=== PATIENT | male | born 1950 | race Caucasian/White ===

== ENCOUNTER → 2018-04-07 | Outpatient (CLI) | payer MEDICARE ==
[2018-04-07 11:50] LABS: Appearance,Urine Clear (Clear); Bilirubin,Urine Negative (Negative); Blood,Urine Negative (Negative); Color,Urine Yellow; Glucose,Urine (UA) Negative (Negative); Ketones,Urine Negative (Negative); Leukocyte Esterase,Urine Negative (Negative); Nitrite,Urine Negative (Negative); PH, Urine 7.5 (5.0-8.0); Protein,Urine Trace (Negative); Specific Gravity,Urine 1.016 (1.001-1.035); Urobilinogen,Urine <2.0 mg/dL (<2.0)
[2018-04-07 12:01] LABS: Basophils % (A) 1 %; Eosinophils % (A) 1 %; HCT 40.9 % (39.0-53.0); HGB 13.6 gm/dL (13.0-17.5); Lymphocytes # (A) 0.6 k/uL (1.0-4.8); Lymphocytes % (A) 11 %; MCH 30.8 pg (25.0-35.0); MCHC 33.2 g/dL (31.0-37.0); MCV 92.8 fL (80.0-100.0); Mean Platelet Volume 7.1; Monocytes # (A) 0.4 k/uL (0-1.0); Monocytes % (A) 7 %; Neutrophils # (A) 4.3 k/uL (1.3-7.7); Neutrophils % (A) 80 %; Platelet Count 113 k/uL (150-450); RBC 4.41 m/uL (4.30-5.90); RDW 14.7 % (11.5-15.5); WBC 5.3 k/uL (3.8-10.6)
--- NOTE | 2018-04-07 12:01 | XR ---
EXAMINATION TYPE: XR chest 2V DATE OF EXAM: 04/07/2018 COMPARISON: 04/07/2018 HISTORY: Shortness of breath TECHNIQUE: Frontal and lateral views of the chest are obtained. FINDINGS: Scattered senescent parenchymal changes noted. Hyperinflation compatible with COPD. No evidence for infiltrate. No evidence for atelectasis. Heart size is stable. Mediastinal structures are stable and grossly unremarkable. No evidence for hilar prominence. Degenerative changes dorsal spine. IMPRESSION: 1. No evidence for acute pulmonary disease.
[2018-04-07 12:06] LABS: Anion Gap 14 mmol/L; Blood Urea Nitrogen 16 mg/dL (9-20); Calcium 8.7 mg/dL (8.4-10.2); Carbon Dioxide 25 mmol/L (22-30); Chloride 103 mmol/L (98-107); Glucose 143 mg/dL (74-99); Potassium 4.6 mmol/L (3.5-5.1); Sodium 142 mmol/L (137-145)
[2018-04-07 12:07] LABS: INR 1.1 (<1.2); Prothrombin Time 10.4 sec (9.0-12.0)
[2018-04-07 12:14] LABS: Partial Thromboplastin Time 21.5 sec (22.0-30.0)
== END | disposition home or self-care (01) ==
LOC: LABPAT 11:09
PROVIDERS: ATTEND Orthopaedic Surgery Orthopaedic Surgery of the Spine
DX: Z01.818 Encounter for other preprocedural examination (principal)
CPT/HCPCS: 36415; 71046; 80048; 81003; 85025; 85610; 85730; 86850; 86900; 86901

== ENCOUNTER 2018-04-13 09:38 | Day surgery (SDC) | payer MEDICARE ==
[~2018-04-13 09:38] MED LIST: BACITRACIN 50,000 UNIT, POLYMYXIN B 500,000 UNIT in SODIUM CHLORIDE 0.9% IRRIGATIO 1,00... IRRIGATION ONE; LIDOCAINE 1% 20 ML VIAL (10MG/ML) FOR IV START INTRADERMA PRN; ONDANSETRON 4 MG/2 ML VIAL IVP ONE; ceFAZolin IN SWFI 2 GM/20 ML SYRINGE IVP ONE
[2018-04-13] MEDS: LACTATED RINGERS 1,000 ML IV SCH ×2 (10:46→18:38)
[2018-04-13] MEDS ORDERED: MIDAZOLAM 2 MG/2 ML VIAL ONE ×2 (11:02→11:55)
[2018-04-13] MEDS ORDERED: fentaNYL (PF) 50 MCG/ML 2 ML AMP ONE ×2 (11:28→11:55)
[2018-04-13] MEDS ORDERED: PROPOFOL 10 MG/ML 20 ML VIAL IV ONE (11:55)
[2018-04-13] MEDS ORDERED: PHENYLEPHRINE-0.9% NACL SYG 1 MG/10 ML SYRINGE ONE (11:55)
[2018-04-13] MEDS ORDERED: LIDOCAINE 1% INJ 10MG/ML (20 ML MDV) ONE (11:55)
[2018-04-13] MEDS ORDERED: SUCCINYLCHOLINE CHLORIDE VIAL 200 MG/10 ML VIAL IV ONE (11:55)
[2018-04-13] MEDS ORDERED: ePHEDrine SULFATE/0.9% NACL/PF 50 MG/5 ML SYRINGE IV ONE (11:55)
[2018-04-13] MEDS ORDERED: DEXAMETHASONE SOD PHOS (MDV) 100 MG/10 ML VIAL ONE (11:55)
[2018-04-13] MEDS ORDERED: LIDOCAINE 0.5%-EPI 1:200,000 50 ML VIAL SQ ONE ×2 (12:27)
[2018-04-13] MEDS ORDERED: LACTATED RINGERS 1,000 ML IV ONE (12:48)
[2018-04-13] MEDS ORDERED: GELATIN SPONGE,ABSORB (LARGE) 1 EACH SPONGE MISCELLANE ONE (13:17)
[2018-04-13] MEDS ORDERED: THROMBIN (BOVINE) 5,000 UNIT VIAL MISCELLANE ONE (13:17)
--- NOTE | 2018-04-13 13:31 | XR ---
EXAMINATION TYPE: XR cervical spine 1V DATE OF EXAM: 04/13/2018 COMPARISON: NONE HISTORY: Intraoperative cervical spine needle placement TECHNIQUE: Single portable lateral view of the cervical spine was obtained. FINDINGS: Needle placement at the C4-C5 intervertebral disc space from an anterior approach is demons trated. Patient is intubated. Evaluation of the prevertebral space is limited. Mild degenerative reeves ges of the cervical spine are seen. IMPRESSION: Intraoperative needle placement at the C4-C5 intervertebral disc space.
[2018-04-13] MEDS ORDERED: ONDANSETRON 4 MG/2 ML VIAL IVP PRN (14:12)
[2018-04-13] MEDS ORDERED: BENZOCAINE/MENTHOL LOZENG 1 EACH LOZENGE MUCOUS MEM PRN (14:12)
[2018-04-13] MEDS ORDERED: ACETAMINOPHEN TAB 325 MG TAB PO PRN (14:12)
[2018-04-13] MEDS ORDERED: oxyCODONE-APAP 7.5-325MG 1 EACH TAB PO PRN (14:14)
[2018-04-13] MEDS ORDERED: traZODone HCL 100 MG TAB PO PRN (14:14)
--- NOTE | 2018-04-13 14:20 | P.OP ---
Date of Procedure: 04/13/18 Preoperative Diagnosis: Cervical stenosis C4 5 C5 6 C6 7, degenerative disc disease C4 5 C5 6 C6 7, upper extremity radiculopathy, neck pain, large anterior osteophytes at C4 5 C5 6 C6 7 Postoperative Diagnosis: same Anesthesia: GETA Pathology: none sent Condition: stable Disposition: PACU Description of Procedure: BRIEF OPERATIVE NOTE Preoperative Diagnosis:Cervical stenosis C4 5 C5 6 C6 7 herniated nucleus pulposis C4 5 C5 6 C6 7, degenerative disc disease C4 5 C5 6 C6 7, neck pain, upper extremity radiculopathy, anterior osteophytes, Postoperative Diagnosis: Same Procedure: Anterior cervical decompression and fusion C4 5 C5 6 C6 7 Placement of interbody allograft bone graft C4 5 C5 6 C6 7 Application of anterior cervical plate C4 5 C5 6 C6 7 Surgeon: Dr. Elliott Atv Mechanic: Preston Sagastume is present throughout the entire the case persistence during positioning, dissection, exposure, visualization, and all crucial elements of the case as well as closure. Anesthesia: General anesthesia Estimated blood loss: Approximately 50 mL Complications: None apparent Components implanted: K2M [place] anterior cervical plate system with screws and Vikos interbody allograft bone graft and 1 mL of DBX bone putty Disposition: To recovery room in good stable condition. OPERATIVE INDICATIONS The patient has had long-standing issues in their neck and upper extremities. He had been having worsening pain in his neck and upper extremities despite aggressive conservative treatment. His found have severe disc degeneration with loss of cervical lordosis had increasing kyphosis at his cervical spine with evidence of disc herniation with severe cervical spinal stenosis which correlate well with his neck and upper extremity symptoms. The patient has been through conservative treatment. We discussed various treatment options including surgery, and the patient wishes to proceed with surgery We discussed the risk, patient's alternatives and benefits of surgery including but not limited to, risk of bleeding risk of infection, risk of need for further surgery , risk of decreased, loss of motion, muscle function, malunion nonunion, hardware failure, nerve damage, paralysis, heart attack, and . OPERATIVE SUMMARY After discussing all the risks, patient alternatives and benefits at length, the patient elected to proceed with surgical intervention, signed informed consent, and presented for their procedure. The patient was seen and examined in the preoperative holding area and the surgical site was marked. The patient was given antibiotics and brought to the operating room. The patient was positioned on the operating room table in a supine position being careful to pad any bony prominences and pressure points. The patient was sedated and intubated by anesthesia in standard fashion. Once the airway and C- spine were stabilized the patient's arms were padded and tucked at her side, with her shoulders gently taped. The head was placed in a donut pad with the neck in good neutral alignment and position. We were careful to maintain the patient's cervical spine and good neutral alignment and position throughout. The patient was prepped and draped in a normal standard fashion. An appropriate timeout and keystone protocol performed. We were able to proceed with the surgery. The local wound area was infiltrated with local anesthetic. An incision was made transversely approximately 2-1/2 cm over the appropriate levels at C6. Dissection was taken down subcutaneously to the level of the platysma which was split in line with its fibers. Dissection was taken with a carotid approach, with the trachea and esophagus medial and the carotid sheath laterally. We dissected down to the anterior surface of the vertebral bodies from C4 to C7. Intraoperative x-ray was taken which showed a marker at the appropriate level at C4 5. With the appropriate level positively confirmed, we were able to proceed with discectomy at the appropriate levels. We started first at C6 7 and then worked our way out to C5 6 and then at C4 5. There large anterior osteophytes at each level particularly at C5 6 and C6 7 which were taken down as well with large Kerrison rongeurs. All of the operative levels were exposed appropriately. The patient had all their twitches back, and there was no evidence of recurrent laryngeal issue. The wound was copiously irrigated and suctioned dry as had been done periodically throughout the case. At the appropriate level/levels, first at C67 and then at C5 6 and then at C4 5 I established an annulotomy with an 11 blade scalpel. A discectomy was performed with a combination of pituitary rongeurs, curettes, a high-speed bur, and Kerrison rongeurs. The posterior longitudinal ligament was taken down as were any posterior osteophytes. There was disc herniation as well and any extruded disc and disc herniation was removed. This gave good central and bilateral foraminal decompression. There is no evidence of any dural tear or leak. The endplates were prepared with a high-speed bur. With the endplates in good parallel position, I was able to size for the appropriate size interbody graft. The wound was irrigated and suctioned dry the graft was prepared and malleted into position. It had good alignment and position with the anterior surface flush with the anterior surface of the vertebral bodies. This was done similarly the appropriate levels for each level at C67 C5 6 and C4 5. With the grafts intact, I was able to measure and contour and appropriate sized plate. The plate was positioned at the midline over the appropriate levels from C4 C7. Screw holes were established with a hand drill and drill guide. Screws were placed in good alignment and position with excellent bony purchase. They were seated under the locking device. The construct was checked and found to be stable. Intraoperative x-ray was taken which showed good alignment and position of the implants at the appropriate levels. There was no evidence of any dural tear or leak. Good hemostasis was maintained. The wound was copiously irrigated and suctioned dry as had been done periodically throughout the case. The platysma was closed with absorbable suture. The subcutaneous tissue was closed. The subcuticular tissue was closed with absorbable suture. The wound was cleaned and dried and dressed appropriately. A soft cervical collar was placed appropriately. The patient was woken up by anesthesia, extubated, transferred back gently to their hospital bed and brought to the recovery room in good stable condition. The patient will be admitted to the hospital for appropriate postoperative care , medical management and monitoring. We will continue to follow them closely about the postoperative course.
[2018-04-13] MEDS: HYDROmorphone 0.5 MG/0.5 ML SYRINGE IVP PRN ×4 (14:30→20:18)
[2018-04-13] MEDS: MEPERIDINE 50 MG/ML SYRINGE IVP ONE ×2 (15:01→15:07)
--- NOTE | 2018-04-13 15:35 | XR ---
EXAMINATION TYPE: XR cervical spine 1V DATE OF EXAM: 04/13/2018 COMPARISON: 04/13/2019 12:44 PM HISTORY: Postoperative evaluation of the cervical spine TECHNIQUE: Single crosstable lateral postoperative image of the cervical spine. FINDINGS: There is a new anterior cervical fusion device beginning at C4 extending at least through C 6, however the inferior margin is not visualized due to the patient's shoulders. Patient is again int ubated. Likely postoperative swelling greatest abnormal thickening of the prevertebral soft tissues. IMPRESSION: Partially visualized anterior cervical fusion device immediately postoperatively.
[2018-04-13] MEDS ORDERED: ceFAZolin 3 GM in SODIUM CHLORIDE 0.9% 100 ML IVPB SCH (16:00)
[2018-04-13 16:03] VITALS: BMI 31.1
[2018-04-13] MEDS: ceFAZolin IN SWFI 2 GM/20 ML SYRINGE IVP SCH (20:15)
[2018-04-13 20:57] VITALS: RESP 16
[2018-04-13] MEDS ORDERED: DILTIAZEM ORAL 60 MG TAB PO SCH (21:00)
[2018-04-14] MEDS: SODIUM CHLORIDE 0.9% 1,000 ML IV SCH ×2 (00:07→03:09)
[2018-04-14] MEDS: HYDROmorphone 0.5 MG/0.5 ML SYRINGE IVP PRN ×2 (00:29→06:09)
[2018-04-14] MEDS: ceFAZolin IN SWFI 2 GM/20 ML SYRINGE IVP SCH (03:09)
[2018-04-14 05:30] VITALS: BP 180/88; PULSE 90; TEMP 98
--- NOTE | 2018-04-14 08:31 | P.DS ---
Providers Date of admission: 04/13/2018 Expected date of discharge: 04/14/18 Attending physician: Sukumar Elliott Primary care physician: Roxann Amaya - Discharge Diagnosis(es) (1) Cervical stenosis of spinal canal Current Visit: Yes Status: Acute (2) Degenerative disc disease, cervical Current Visit: Yes Status: Acute (3) Radiculopathy affecting upper extremity Current Visit: Yes Status: Acute (4) Cervicalgia Current Visit: Yes Status: Acute (5) Status post cervical arthrodesis Current Visit: Yes Status: Acute Hospital Course: This is a pleasant 67-year-old male who presented with C4-5, C5-6, and C6-7 degenerative disc disease, cervical stenosis, and large anterior osteophytic spurring with upper extremity radiculopathy and cervicalgia who failed outpatient conservative therapy. He was admitted for an anterior cervical decompression and fusion at C4-5, C5-6, and C6-7. The patient tolerated the procedure well and did well postoperatively. His pain has been well-controlled postoperatively. He states he feels significantly better than he did prior to surgical intervention. He continues to keep his soft collar intact and states it is comfortable. Condition on day of discharge stable. Patient will be discharged home. Patient was cleared preoperatively for surgery by Dr. Amaya. Patient currently denies any nausea, vomiting, fever, or chills. Patient is eating and voiding freely without difficulty. Patient may shower Tegaderm dressing intact. Patient may remove Tegaderm dressing in 3 days and shower without a dressing at that time. Patient should keep Steri-Strips intact and allow them to fall off naturally. Patient should refrain from driving until at least after their first follow-up appointment in the office. Patient should avoid excessive neck flexion, extension, rotation, and lateral sidebending; no overhead lifting; no lifting greater than 10 pounds. Patient may continue taking Percocet 7.5 mg/325 mg 1 tablet every 6 hours as needed for pain as previously prescribed in the outpatient setting. He may call the office for refill of this medication if he needs one prior to his follow-up appointment. He may resume previously prescribed home medications. Physical Exam on day of discharge: Patient is awake, alert, and oriented 3 Vital signs stable Good chest excursion with deep inspiration and expiration Abdomen soft nontender No signs or symptoms of DVT; no calf pain Adequate range of motion of the cervical spine with flexion, extension, and bilateral rotation Hand Upper And Bottom Lacer strength, thumb strength, interosseous strength, biceps strength, triceps strength, and shoulder strength positive sustained bilaterally Soft cervical collar intact Incision is dry and intact with some blood at the inferior portion of the dressing; no erythema, purulence, or signs of infection No active drainage from the incision site Tegaderm dressing and non-stick Telfa intact Procedures: Anterior cervical decompression and fusion at C4-5, C5-6, and C6-7 Patient Condition at Discharge: Stable Plan - Discharge Summary Discharge Rx Participant: No New Discharge Prescriptions: No Action Diltiazem HCl 60 mg PO HS Diltiazem HCl 120 mg PO QAM Multivitamins, Thera [Multivitamin (formulary)] 1 tab PO DAILY oxyCODONE HCL/ACETAMINOPHEN [Percocet 7.5-325 mg] 1 tab PO Q6H PRN PRN Reason: Pain Rivaroxaban [Xarelto] 20 mg PO DAILY traZODone HCL 100 mg PO HS PRN PRN Reason: Insomnia Lisinopril 40 mg PO QAM Amiodarone [Cordarone] 50 mg PO DAILY Discharge Medication List Diltiazem HCl 60 mg PO HS 04/09/18 [History] Diltiazem HCl 120 mg PO QAM 04/09/18 [History] Lisinopril 40 mg PO QAM 04/09/18 [History] Multivitamins, Thera [Multivitamin (formulary)] 1 tab PO DAILY 04/09/18 [History ] Rivaroxaban [Xarelto] 20 mg PO DAILY 04/09/18 [History] oxyCODONE HCL/ACETAMINOPHEN [Percocet 7.5-325 mg] 1 tab PO Q6H PRN 04/09/18 [ History] traZODone HCL 100 mg PO HS PRN 04/09/18 [History] Amiodarone [Cordarone] 50 mg PO DAILY 04/13/18 [History] Follow up Appointment(s)/Referral(s): Preston Morelos PAC [PHYSICIAN DRAWING PRESS OPERATOR] - 2 Weeks (Patient may follow-up with Preston Morelos PA-C or Dr. Will Elliott at [facility] in 2-3 weeks following discharge. ) Activity/Diet/Wound Care/Special Instructions: 1. Patient may shower with Tegaderm dressing intact. 2. Patient may remove Tegaderm dressing in 3 days and shower without a dressing at that time. 3. Patient should keep Steri-Strips intact and allow them to fall off naturally. 4. Patient should refrain from driving until at least after their first follow- up appointment in the office. 5. Patient should avoid excessive cervical extension, flexion, rotation, and sidebending; avoid overhead lifting; no lifting greater than 10 pounds 6. Take medications as prescribed 7. Do not soak in tub Discharge Disposition: HOME SELF-CARE
[2018-04-14] MEDS ORDERED: LISINOPRIL 20 MG TAB PO SCH (09:00)
[2018-04-14] MEDS ORDERED: AMIODARONE 50 MG TAB PO SCH (09:00)
[2018-04-14] MEDS ORDERED: DILTIAZEM ORAL 60 MG TAB PO SCH (09:00)
[2018-04-14] MEDS ORDERED: SENNOSIDES-DOCUSATE SODIUM 1 EACH TAB PO SCH (09:00)
[2018-04-14] MEDS ORDERED: MULTIVITAMINS, THERA 1 EACH TAB PO SCH (12:00)
[2018-04-15] MEDS ORDERED: RIVAROXABAN 20 MG TAB PO SCH (09:00)
== END 2018-04-14 12:09 | disposition home or self-care (01) ==
LOC: OR 09:38 → EDSTATUS 13:00 → 5MS5E 14:18 → OR 04-14 12:09
PROVIDERS: ATTEND Orthopaedic Surgery Orthopaedic Surgery of the Spine
DX: M48.02 Spinal stenosis, cervical region (principal); M43.12 Spondylolisthesis, cervical region; M50.121 Cervical disc disorder at C4-C5 level with radiculopathy; M25.78 Osteophyte, vertebrae; M41.9 Scoliosis, unspecified; I48.0 Paroxysmal atrial fibrillation; F32.9 Major depressive disorder, single episode, unspecified; I11.9 Hypertensive heart disease without heart failure; E78.00 Pure hypercholesterolemia, unspecified; I25.10 Atherosclerotic heart disease of native coronary artery without angina pectoris; R53.83 Other fatigue; Z79.01 Long term (current) use of anticoagulants; Z79.1 Long term (current) use of non-steroidal anti-inflammatories (NSAID); Z79.52 Long term (current) use of systemic steroids; Z79.899 Other long term (current) drug therapy; Z79.891 Long term (current) use of opiate analgesic; Z82.49 Family history of ischemic heart disease and other diseases of the circulatory system; Z88.8 Allergy status to other drugs, medicaments and biological substances
CPT/HCPCS: 72020; 22551; 22552 ×2; 22845; 20931; C1713 ×2; C1762 ×2; J2250; J0330; J2175; J2405; J2001; J3010; J1100; J2370; J2704; J1170 ×2; J0690 ×2; 86850; 86900; 86901

== ENCOUNTER 2018-04-17 13:39 | Emergency (ER) | payer MEDICARE ==
[2018-04-17 14:00] VITALS: BP 164/99; PULSE 117; RESP 20; TEMP 98.5
[2018-04-17] MEDS ORDERED: MORPHINE SULFATE 4 MG/ML SYRINGE IM STA (14:35)
[2018-04-17] MEDS ORDERED: ONDANSETRON ODT 4 MG TAB PO STA (14:35)
--- NOTE | 2018-04-17 15:26 | ED ---
General Adult HPI - General Chief complaint: Recheck/Abnormal Lab/Rx Stated complaint: hypertension, anxiety Time Seen by Provider: 04/17/18 14:19 Source: patient, RN notes reviewed Mode of arrival: wheelchair Limitations: no limitations - History of Present Illness Initial comments: 67-year-old male presents to the emergency department for a chief complaint of neck pain. Patient had surgery [address] Elliott. Patient states that last night he gasped in his sleep and has had increased pain since that time. Patient states he took Percocet this morning at 6 AM but has not taken anything since that time. Patient states he has been anxious. He states his daughter is in the ICU and that is causing him anxiety. Patient states his blood pressure was high at home about 200/100. He states he also came into the emergency department because of his blood pressure. Patient denies any other injuries to the neck. He states he has been very careful.Patient has no other complaints at this time including shortness of breath, chest pain, abdominal pain, nausea or vomiting, headache, or visual changes. - Related Data Home Medications Medication Instructions Recorded Confirmed Diltiazem HCl 60 mg PO HS 04/09/18 04/17/18 Diltiazem HCl 120 mg PO QAM 04/09/18 04/17/18 Lisinopril 40 mg PO QAM 04/09/18 04/17/18 Multivitamins, Thera [Multivitamin 1 tab PO DAILY 04/09/18 04/17/18 (formulary)] Rivaroxaban [Xarelto] 20 mg PO DAILY 04/09/18 04/17/18 oxyCODONE HCL/ACETAMINOPHEN 1 tab PO Q6H PRN 04/09/18 04/17/18 [Percocet 7.5-325 mg] traZODone HCL 200 mg PO HS 04/09/18 04/17/18 Acetaminophen/Diphenhydramine 1 tab PO HS 04/17/18 04/17/18 [Tylenol PM 500-25mg] Amiodarone [Cordarone] 200 mg PO BID 04/17/18 04/17/18 Metoprolol Succinate (ER) [Toprol 50 mg PO DAILY 04/17/18 04/17/18 Xl] Allergies Allergy/AdvReac Type Severity Reaction Status Date / Time No Known Allergies Allergy Verified 04/17/18 14:22 Review of Systems ROS Statement: Those systems with pertinent positive or pertinent negative responses have been documented in the HPI. ROS Other: All systems not noted in ROS Statement are negative. Past Medical History Past Medical History: Atrial Fibrillation, Hypertension History of Any Multi-Drug Resistant Organisms: None Reported Past Surgical History: Cholecystectomy, Orthopedic Surgery Additional Past Surgical History / Comment(s): hip replaneck fusion c-3-c4, c5-6 , ablation, carioversion Past Psychological History: No Psychological Hx Reported General Exam Limitations: no limitations General appearance: alert, in no apparent distress, anxious Head exam: Present: atraumatic, normocephalic, normal inspection Eye exam: Present: normal appearance ENT exam: Present: normal exam, normal oropharynx, mucous membranes moist, normal external ear exam Neck exam: Present: other (Patient has a dressing over the anterior area of the neck where surgery occurred. No signs of infection noted at this time.). Absent: tenderness (No tenderness to the posterior cervical spine.), full ROM ( Patient is not supposed to move his neck in full range of motion at this time.) Respiratory exam: Present: normal lung sounds bilaterally. Absent: respiratory distress, wheezes, rales, rhonchi, stridor Cardiovascular Exam: Present: regular rate, normal rhythm, normal heart sounds. Absent: systolic murmur, diastolic murmur, rubs, gallop, clicks Extremities exam: Present: full ROM (Full range of motion and strength 5 out of 5 in upper and lower extremities bilaterally. Sensation intact in upper and lower extremities bilaterally. Pedal pulse 2+ in lower extremities bilaterally. ) Neurological exam: Present: alert, oriented X3, CN II-XII intact, normal gait, reflexes normal, other (No focal neuro deficits. GCS 15). Absent: motor sensory deficit Course Vital Signs 04/17/18 13:56 Temperature 98.5 F Pulse Rate 117 H Respiratory 20 Rate Blood Pressure 164/99 O2 Sat by Pulse 100 Oximetry Medical Decision Making - Medical Decision Making 67-year-old male presents to the emergency department for a chief complaint of postop neck pain. Patient had surgery 5 days ago. Patient states he gasped last night in his sleep and thinks it worsened his pain. Patient did take 2 Percocet this morning but has not taken anything since. On exam patient does have some range motion of his neck but is not supposed to move in full range of motion due to the surgery. Patient does have intact dressing and Steri-Strips over the anterior aspect of the neck. The Steri-Strips are supposed to follow- up on their own. No signs of infection at this time. Patient is very anxious in the emergency department room. He is pacing and states he would like the door open. He complains it is too quiet back there. He says he is stressed because his daughter is in the ICU. Patient states his blood pressure was high at home so he came here for evaluation. Patient's blood pressure is 164/99 in the emergency department. I did offer both imaging and morphine for pain. Patient refused both of these. Patient states he just wants to leave. He states he can manage his pain at home. He was concerned about his blood pressure but it is stabilized at this point in the ER. He has not taken his blood pressure medications today and will do so as soon as he leaves. He does not want to take his medication in the emergency department. He will follow-up with Dr. Elliott in 1-2 days. He will return to the emergency department if he has any worsening symptoms or if his blood pressure continues to the elevated. Disposition Clinical Impression: Post-op pain Disposition: HOME SELF-CARE Condition: Good Instructions: Neck Pain (ED) Additional Instructions: Please take pain medications given by Dr. Elliott. Please take your blood pressure medications as directed. If you have further concerns about elevated blood pressure that will not decreased at home you may return to the emergency department. Return if you have any worsening symptoms. Follow-up with Dr. Elliott in one to 2 days. Is patient prescribed a controlled substance at d/c from ED?: No Referrals: Roxann Amaya DO [Primary Care Provider] - 1-2 days Sukumar Elliott DO [Doctor of Osteopathic Medicine] - 1-2 days Time of Disposition: 15:24
== END 2018-04-17 15:47 | disposition home or self-care (01) ==
LOC: EC 13:39
DX: G89.18 Other acute postprocedural pain (principal); M54.2 Cervicalgia; I48.91 Unspecified atrial fibrillation; I10 Essential (primary) hypertension; Z79.01 Long term (current) use of anticoagulants; Z79.899 Other long term (current) drug therapy; Z53.29 Procedure and treatment not carried out because of patient's decision for other reasons
CPT/HCPCS: 99283

== ENCOUNTER → 2018-09-10 | Outpatient (CLI) | payer MEDICARE ==
--- NOTE | 2018-09-11 06:00 | MR ---
EXAMINATION TYPE: MR knee RT wo con DATE OF EXAM: 09/10/2018 COMPARISON: HISTORY: Rt knee pain x 2-3 mos, no trauma TECHNIQUE: Multiplanar, multisequence imaging of the knee is performed without IV contrast. FINDINGS: There is a mild knee joint effusion. The anterior and posterior cruciate ligaments are intact. The co llateral ligaments are intact. There is narrowing of the joint spaces and more noticeable in the late ral joint space. There is hypertrophic spurring of the femoral and tibial condyles laterally. There i s vertical and horizontal defect through the posterior horn medial meniscus. There is significant thinning of the entire lateral meniscus which is also displaced laterally. There is no evidence of a fracture. I see no focal bone destruction. Patella is intact. 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 Significant degenerative hypertrophic changes in the lateral joint space with lateral displacement of the meniscus and meniscal thinning. T here is a vertical and horizontal tear of the posterior horn medial meniscus. Knee joint effusion. No fracture.
== END | disposition home or self-care (01) ==
LOC: RADMRIMAIN 21:05
PROVIDERS: ATTEND Orthopaedic Surgery
DX: M17.11 Unilateral primary osteoarthritis, right knee (principal); S83.241A Other tear of medial meniscus, current injury, right knee, initial encounter

== ENCOUNTER → 2020-10-31 | Outpatient (CLI) | payer MEDICARE | END | disposition home or self-care (01) | LOC: CPPFTMAIN 08:39 | PROVIDERS: ATTEND Family Medicine | DX: J44.9 Chronic obstructive pulmonary disease, unspecified (principal); R94.2 Abnormal results of pulmonary function studies | CPT/HCPCS: 94060; 94726; 94729 ==